=== PATIENT | male | born 1950 | race Hispanic/Latino ===

== ENCOUNTER 2017-03-29 13:44 | Inpatient (IN) | payer MEDICARE ==
[~2017-03-29] VITALS: Ht 162.6 cm; Wt 97.2 kg
[2017-03-29 14:43] LABS: BASOPHILS % (AUTO) 0.6 % (0.0-5.0); EOSINOPHILS % (AUTO) 1.1 % (0.0-8.0); HEMATOCRIT 42.5 % (42-54); LYMPHOCYTES % (AUTO) 16.7 % (21.0-51.0); MEAN CORPUSCULAR HEMOGLOBIN 28.7 pg (27.0-33.0); MEAN CORPUSCULAR HGB CONC 35.8 g/dL (32.0-36.0); MEAN CORPUSCULAR VOLUME 80.2 fL (79-99); MONOCYTES % (AUTO) 13.6 % (3.0-13.0); NUCLEATED RED BLOOD CELLS 0.1 % (0.0-0.19); PLATELET COUNT (AUTO) 162 K/uL (130-400); RED CELL DISTRIBUTION WIDTH 13.6 % (11.0-15.5); WHITE BLOOD COUNT (AUTO) 9.4 K/uL (4.8-10.8)
[2017-03-29 14:57] LABS: POTASSIUM 3.3 mmol/L (3.5-5.1)
[2017-03-29 14:59] LABS: INR 1.1 (0.85-1.15); PARTIAL THROMBOPLASTIN TIME 29.4 SEC (26.3-35.5); PROTHROMBIN TIME 11.5 SEC (9.6-11.6)
[2017-03-29 15:02] LABS: ALBUMIN 3.2 g/dL (3.5-5.0); BILIRUBIN,TOTAL 0.8 mg/dL (0.2-1.0); TOTAL PROTEIN, SERUM 7.2 g/dL (6.0-8.3)
[2017-03-29 15:41] LABS: B-TYPE NATRIURETIC PEPTIDE 445 pg/mL (0-100)
[2017-03-29] MEDS ORDERED: FUROSEMIDE 10 MG/ML 4ML VIAL ONE (17:43)
[2017-03-29] MEDS ORDERED: MORPHINE SULFATE 2 MG/ML 1ML SYG IV PRN (20:15)
[2017-03-29] MEDS ORDERED: MAG HYDROX/AL HYDROX/SIMETH ES 30 ML SUSP UDCUP PO PRN (20:15)
[2017-03-29] MEDS ORDERED: ONDANSETRON HCL 4 MG/2 ML VIAL IV PRN (20:15)
[2017-03-29] MEDS ORDERED: ACETAMINOPHEN-CODEINE 300/30MG TAB PO PRN (20:15)
[2017-03-29] MEDS ORDERED: ACETAMINOPHEN 325 MG TAB PO PRN (20:15)
[2017-03-29] MEDS ORDERED: LACTULOSE 20 GM/30 ML UDCUP PO PRN (20:15)
[2017-03-29] MEDS ORDERED: DiphenhydrAMINE HCL 50 MG/ML VIAL IV PRN (20:15)
[2017-03-29] MEDS: FAMOTIDINE 20MG TAB 20 MG TAB PO SCH (21:00)
[2017-03-29] MEDS: METOPROLOL TARTRATE 25 MG TAB PO SCH (21:00)
[2017-03-29] MEDS ORDERED: METOPROLOL TARTRATE 25 MG TAB ONE (22:27)
[2017-03-29] MEDS ORDERED: METOPROLOL TARTRATE 1 MG/ML 5ML VIAL IV ONE (22:46)
[2017-03-30] VITALS (11 sets, daily range): BP systolic 90–128; BP diastolic 53–80
[2017-03-30] MEDS ORDERED: POTASSIUM BICARB/CIT AC 25 MEQ TABLET.EFF ONE (00:11)
[2017-03-30] MEDS ORDERED: VERAPAMIL HCL 2.5 MG/ML VIAL IVP ONE (01:34)
[2017-03-30] MEDS: VERAPAMIL HCL 2.5 MG/ML VIAL IVP SCH (01:46)
[2017-03-30] MEDS ORDERED: ASPI-555 PO (04:17)
[2017-03-30] MEDS ORDERED: SIMV20TA6 PO (04:17)
[2017-03-30] MEDS ORDERED: ALBUHFA IH (04:17)
[2017-03-30] MEDS ORDERED: SYMB8060 IH (04:17)
[2017-03-30] MEDS ORDERED: LOSA50TA37 PO (04:17)
[2017-03-30] MEDS ORDERED: HYDR25TA PO (04:17)
[2017-03-30 04:34] LABS: BASOPHILS % (AUTO) 0.7 % (0.0-5.0); EOSINOPHILS % (AUTO) 1.4 % (0.0-8.0); LYMPHOCYTES % (AUTO) 19.6 % (21.0-51.0); MEAN CORPUSCULAR HEMOGLOBIN 28.1 pg (27.0-33.0); MEAN CORPUSCULAR VOLUME 80.3 fL (79-99); NEUTROPHILS % (AUTO) 64.3 % (40.0-77.0); PLATELET COUNT (AUTO) 169 K/uL (130-400); RED BLOOD CELL COUNT(AUTO) 5.48 MIL/uL (4.50-6.20); WHITE BLOOD COUNT (AUTO) 10.3 K/uL (4.8-10.8)
[2017-03-30 04:40] LABS: CREATININE 1.1 mg/dL (0.5-1.5); POTASSIUM 3.3 mmol/L (3.5-5.1)
[2017-03-30] MEDS: GUAIFENESIN-DM 200/20 MG 10 ML PO PRN ×2 (05:39→20:16)
[2017-03-30] MEDS ORDERED: METOPROLOL TARTRATE 1 MG/ML 5ML VIAL IV SCH ×2 (08:30→08:40)
[2017-03-30] MEDS: METOPROLOL TARTRATE 25 MG TAB PO SCH ×2 (08:47→20:17)
[2017-03-30] MEDS: FAMOTIDINE 20MG TAB 20 MG TAB PO SCH ×2 (08:47→20:17)
[2017-03-30] MEDS: ENOXAPARIN SODIUM 40 MG/0.4 ML SYRINGE SQ SCH (09:12)
[2017-03-30 09:34] LABS: CREATINE KINASE MB 0.9 ng/mL (0.5-3.6); CREATINE KINASE, TOTAL 98 U/L (21-232); MYOGLOBIN 67 ng/mL (10-92); TROPONIN I < 0.04 ng/mL (0.00-0.06)
[2017-03-30] MEDS ORDERED: LIDOCAINE HCL-MPF 1% 2ML VIAL IVP PRN (09:45)
[2017-03-30] MEDS ORDERED: POTASSIUM CHLORIDE 20 MEQ ERTAB PO PRN (09:45)
[2017-03-30] MEDS ORDERED: POTASSIUM CHLORIDE 20MEQ/100ML 100 ML IV PRN (09:45)
[2017-03-30] MEDS: CEFTRIAXONE SODIUM 1 GM IVP SCH (10:24)
[2017-03-30] MEDS: FUROSEMIDE 10 MG/ML 2ML VIAL IV SCH ×2 (10:28→18:03)
[2017-03-30] MEDS: POTASSIUM CHLORIDE 10% ELIXIR 20 MEQ/15 ML UDCUP PO PRN ×3 (10:29→18:01)
[2017-03-30] MEDS ORDERED: GADOBENATE DIMEGLUMINE 20 ML IV ONE (13:31)
[2017-03-31] VITALS (7 sets, daily range): BP systolic 111–130; BP diastolic 53–89
[2017-03-31] MEDS: VERAPAMIL HCL 2.5 MG/ML VIAL IVP SCH (00:49)
[2017-03-31] MEDS: FUROSEMIDE 10 MG/ML 2ML VIAL IV SCH (01:25)
[2017-03-31] MEDS ORDERED: VERAPAMIL HCL 2.5 MG/ML VIAL IVP ONE (02:45)
[2017-03-31] MEDS: FAMOTIDINE 20MG TAB 20 MG TAB PO SCH ×2 (08:46→20:32)
[2017-03-31] MEDS: RIVAROXABAN 20 MG TABLET PO SCH (08:46)
[2017-03-31] MEDS: METOPROLOL TARTRATE 25 MG TAB PO SCH ×2 (08:46→20:32)
[2017-03-31] MEDS: ENOXAPARIN SODIUM 40 MG/0.4 ML SYRINGE SQ SCH (08:47)
[2017-03-31] MEDS ORDERED: CEFTRIAXONE SODIUM 1 GM IV SCH (09:00)
[2017-03-31] MEDS: CEFTRIAXONE SODIUM 1 GM IVP SCH (09:11)
[2017-03-31] MEDS ORDERED: CEFTRIAXONE SODIUM 1 GM IVP ONE (09:15)
[2017-03-31] MEDS ORDERED: MAGNESIUM 2GM PREMIX 50ML 50 ML IV SCH (12:45)
[2017-03-31] MEDS ORDERED: FUROSEMIDE 10 MG/ML 4ML VIAL IV SCH (14:00)
[2017-03-31] MEDS: ALBUTEROL SULFATE 0.083% 2.5 MG/3 ML INH IH SCH ×2 (14:35→22:03)
[2017-04-01 04:08] VITALS: BP 139/84
[2017-04-01] MEDS: GUAIFENESIN-DM 200/20 MG 10 ML PO PRN (04:22)
[2017-04-01] MEDS: ALBUTEROL SULFATE 0.083% 2.5 MG/3 ML INH IH SCH ×2 (06:26→14:21)
[2017-04-01 07:37] VITALS: BP 147/93
[2017-04-01] MEDS ORDERED: LORAZEPAM 2 MG/ML 1 ML VIAL IVP SCH (08:00)
[2017-04-01] MEDS: RIVAROXABAN 20 MG TABLET PO SCH (09:50)
[2017-04-01] MEDS: METOPROLOL TARTRATE 25 MG TAB PO SCH (09:50)
[2017-04-01] MEDS: FAMOTIDINE 20MG TAB 20 MG TAB PO SCH (09:50)
[2017-04-01] MEDS: CEFTRIAXONE SODIUM 1 GM IVP SCH (09:51)
[2017-04-01] MEDS ORDERED: GUAIFDM PO (10:25)
[2017-04-01] MEDS ORDERED: RIVA20TA PO (10:25)
[2017-04-01] MEDS ORDERED: METO25 PO (10:25)
[2017-04-01 11:10] VITALS: BP 143/90
[2017-04-01] MEDS ORDERED: FUROSEMIDE 10 MG/ML 2ML VIAL IV SCH (22:00)
== END 2017-04-01 14:55 | disposition home or self-care (01) | DRG 308 ==
LOC: EDH 13:44 → UNDOADMIN 13:45 → EDHIP 13:45 → 3CH 23:07 → 2DH 03-30 09:19
PROVIDERS: ADMIT Family Medicine; ATTEND Family Medicine
DX: I48.0 Paroxysmal atrial fibrillation (principal); I50.31 Acute diastolic (congestive) heart failure; G20 Parkinson's disease; B97.4 Respiratory syncytial virus as the cause of diseases classified elsewhere; R13.12 Dysphagia, oropharyngeal phase; E87.70 Fluid overload, unspecified; I11.0 Hypertensive heart disease with heart failure; W19.XXXA Unspecified fall, initial encounter; J20.9 Acute bronchitis, unspecified; T50.2X5A Adverse effect of carbonic-anhydrase inhibitors, benzothiadiazides and other diuretics, initial encounter; E78.5 Hyperlipidemia, unspecified; E87.6 Hypokalemia; F79 Unspecified intellectual disabilities; G47.33 Obstructive sleep apnea (adult) (pediatric); G47.30 Sleep apnea, unspecified; J20.5 Acute bronchitis due to respiratory syncytial virus; J42 Unspecified chronic bronchitis; Z86.73 Personal history of transient ischemic attack (TIA), and cerebral infarction without residual deficits; Z79.01 Long term (current) use of anticoagulants; Z88.8 Allergy status to other drugs, medicaments and biological substances; Z98.49 Cataract extraction status, unspecified eye; Y93.89 Activity, other specified; Y92.89 Other specified places as the place of occurrence of the external cause; Y99.8 Other external cause status
CPT/HCPCS: 36415; 70553; 71045; 73562; 80048; 80053; 82550; 82553; 82948; 83605; 83874; 83880; 84439; 84443; 84484; 85025; 85610; 85730; 87040; 87633; 87804; 92610; 93005; 93306; 94640; 94664; A4218; A9577; J0696; J1650; J1940; J3490

== ENCOUNTER 2018-10-19 09:35 | Emergency (ER) | payer MEDICARE ==
[~2018-10-19 09:35] MED LIST: ALBUHFA IH; ASPI-555 PO; GUAIFDM PO; LOSA50TA64 PO; METO25 PO; RIVA20TA PO; SIMV20TA6 PO; SYMB8060 IH
[2018-10-19 09:57] LABS: BASOPHILS % (AUTO) 0.6 % (0.0-5.0); EOSINOPHILS % (AUTO) 3.1 % (0.0-8.0); HEMATOCRIT 42.4 % (42-54); LYMPHOCYTES % (AUTO) 20.1 % (21.0-51.0); MEAN CORPUSCULAR HEMOGLOBIN 29.9 pg (27.0-33.0); MEAN CORPUSCULAR HGB CONC 35.6 g/dL (32.0-36.0); MEAN CORPUSCULAR VOLUME 83.9 fL (79-99); MONOCYTES % (AUTO) 7.2 % (3.0-13.0); NUCLEATED RED BLOOD CELLS 0.1 % (0.0-0.19); PLATELET COUNT (AUTO) 125 K/uL (130-400); RED BLOOD CELL COUNT(AUTO) 5.05 MIL/uL (4.50-6.20); RED CELL DISTRIBUTION WIDTH 13.1 % (11.0-15.5); WHITE BLOOD COUNT (AUTO) 6.3 K/uL (4.8-10.8)
[2018-10-19 10:04] LABS: CREATININE 0.8 mg/dL (0.5-1.5); POTASSIUM 3.7 mmol/L (3.5-5.1)
[2018-10-19 10:07] LABS: INR 1.17 (0.85-1.15); PARTIAL THROMBOPLASTIN TIME 31.8 SEC (26.3-35.5); PROTHROMBIN TIME 12.2 SEC (9.6-11.6)
[2018-10-19] MEDS ORDERED: SODIUM CHLORIDE 0.9% 50 ML IV ONE (11:40)
== END 2018-10-19 13:07 | disposition home or self-care (01) ==
LOC: EDH 09:35
DX: S81.812A Laceration without foreign body, left lower leg, initial encounter (principal); L03.116 Cellulitis of left lower limb; I10 Essential (primary) hypertension; E78.5 Hyperlipidemia, unspecified; Z87.891 Personal history of nicotine dependence; Z88.8 Allergy status to other drugs, medicaments and biological substances; W18.39XA Other fall on same level, initial encounter; Y93.89 Activity, other specified; Y92.009 Unspecified place in unspecified non-institutional (private) residence as the place of occurrence of the external cause; Y99.8 Other external cause status
CPT/HCPCS: 36415; 70450; 73562; 73590; 73610; 80048; 85025; 85610; 85730; 93971; 96374

== ENCOUNTER 2018-10-25 11:57 | Emergency (ER) | payer MEDICARE ==
[2018-10-25 12:48] LABS: CREATININE 0.7 mg/dL (0.5-1.5); POTASSIUM 3.9 mmol/L (3.5-5.1)
[2018-10-25 12:50] LABS: BASOPHILS % (AUTO) 0.4 % (0.0-5.0); HEMATOCRIT 42.8 % (42-54); LYMPHOCYTES % (AUTO) 17.7 % (21.0-51.0); MEAN CORPUSCULAR HEMOGLOBIN 30.1 pg (27.0-33.0); MEAN CORPUSCULAR HGB CONC 35.5 g/dL (32.0-36.0); MEAN CORPUSCULAR VOLUME 84.7 fL (79-99); MONOCYTES % (AUTO) 7.3 % (3.0-13.0); NEUTROPHILS % (AUTO) 72.6 % (40.0-77.0); NUCLEATED RED BLOOD CELLS 0.1 % (0.0-0.19); PLATELET COUNT (AUTO) 160 K/uL (130-400); RED BLOOD CELL COUNT(AUTO) 5.06 MIL/uL (4.50-6.20); RED CELL DISTRIBUTION WIDTH 13.3 % (11.0-15.5); WHITE BLOOD COUNT (AUTO) 8.7 K/uL (4.8-10.8)
[2018-10-25 12:56] LABS: ALBUMIN 3.9 g/dL (3.5-5.0); TOTAL PROTEIN, SERUM 7.8 g/dL (6.0-8.3)
[2018-10-25] MEDS ORDERED: CEFTRIAXONE SODIUM 1 GM ONE (13:53)
[2018-10-25] MEDS ORDERED: LIDOCAINE HCL-MPF 1% 2ML VIAL ONE (13:53)
== END 2018-10-25 14:03 | disposition home or self-care (01) ==
LOC: EDH 11:57
DX: L03.116 Cellulitis of left lower limb (principal); I10 Essential (primary) hypertension; E78.5 Hyperlipidemia, unspecified
CPT/HCPCS: 36415; 80053; 85025; 96372; 99284; J0696; J3490